=== PATIENT | female | born 1960 | race African-American/Black ===

== ENCOUNTER 2016-08-30 21:51 | Emergency (ER) | payer OTHER ==
[~2016-08-30] VITALS: Ht 160 cm; Wt 110.4 kg
[~2016-08-30 21:51] MED LIST: GLIMEPIRIDE1 MG PO; PERCOCET 5/31 TABLET PO; VICTOZA0.6 MG/0.1 IJ
[2016-08-30 21:56] VITALS: BP 181/102
[2016-08-30 22:16] LABS: HEMATOCRIT 43.3 % (36.0-46.0); MCH 27.9 PG (29.0-34.0); MCHC 33.5 G/DL (30.0-36.0); MCV 83.3 FL (83-99); MEAN PLAT.VOLUME 9.6 uM^3 (9.5-12.4); PLATELET COUNT 267 K/uL (156-360); RBC DIS.WIDTH-CV 12.1 % (11.8-14.6); RBC DIS.WIDTH-SD 36.9 % (39-53); WHITE BLOOD COUNT 13.2 K/uL (4.1-10.2)
[2016-08-30 23:02] LABS: ANION GAP 16 MEQ/L (2-14); CHLORIDE 98 MEQ/L (99-109); POTASSIUM 3.7 MEQ/L (3.7-5.4); SAMPLE HEMOLYSIS CHECK 0; SAMPLE ICTERIC CHECK 0; SAMPLE LIPEMIA CHECK 0; SODIUM 138 MEQ/L (136-147); TOTAL BILIRUBIN 1.6 MG/DL (0.0-1.0)
[2016-08-30 23:08] LABS: ALKALINE PHOSPHATASE 75 IU/L (3-129); GFR ESTIMATE (CALCULATED) > 59 mL/min/; GLUCOSE 154 mg/dL (70-99); UREA NITROGEN (BUN) 15 mg/dL (9-23)
[2016-08-30] MEDS ORDERED: ONDANSETRON HCL8 MG PO (23:22)
[2016-08-30] MEDS ORDERED: METOCLOPRAM5 MG/5 ML PO (23:22)
[2016-08-31 01:30] LABS: ADD MIUA? YES; BILIRUBIN NEGATIVE; BLOOD NEGATIVE; COLOR YELLOW ((YELLOW)); GLUCOSE (STRIP) NEGATIVE; KETONES 80; LEUKOCYTES NEGATIVE; NITRITE NEGATIVE; PROTEIN (STRIP) 100
[2016-08-31 01:35] LABS: BACTERIA RARE /HPF; EPITHELIAL CELLS RARE /HPF; HYALINE CASTS 0-5 /LPF; MUCUS 3+ /LPF; RED BLOOD CELLS 0-5 /HPF (0-5); UCUL ADDED? NO; WHITE BLOOD CELLS 0-5 /HPF (0-5)
[2016-08-31] MEDS ORDERED: BENTYL10 MG PO (03:33)
[2016-08-31] MEDS ORDERED: NORCO 5/3251 TABLET PO (03:33)
[2016-08-31] MEDS ORDERED: ZOFRAN4 MG PO (03:33)
== END 2016-08-31 03:57 | disposition home or self-care (01) ==
LOC: EME 21:51
DX: K52.9 Noninfective gastroenteritis and colitis, unspecified (principal); E11.9 Type 2 diabetes mellitus without complications; Z79.84 Long term (current) use of oral hypoglycemic drugs
CPT/HCPCS: 74177; 80053; 81003; 85027; 99281; 99284; J2405; J7030